=== PATIENT | male | born 1975 | race Caucasian/White ===

== ENCOUNTER 2016-05-15 15:38 | Emergency (ER) | payer OTHER ==
[~2016-05-15] VITALS: Ht 175.3 cm; Wt 70.2 kg
[~2016-05-15 15:38] MED LIST: NOHOMEMEDS
[2016-05-15 16:43] VITALS: BP 110/71
== END 2016-05-15 16:44 | disposition home or self-care (01) ==
LOC: EME 15:38
DX: S05.52XA Penetrating wound with foreign body of left eyeball, initial encounter (principal); X58.XXXA Exposure to other specified factors, initial encounter
CPT/HCPCS: 99281; 99284